=== PATIENT | male | born 1955 | race African-American/Black ===

== ENCOUNTER → 2019-08-28 | Outpatient (CLI) | payer OTHER | LOC: ECHO 08:46 | PROVIDERS: ATTEND Family Medicine | DX: I63.9 Cerebral infarction, unspecified (principal) ==

== ENCOUNTER → 2019-11-06 | Outpatient (CLI) | payer OTHER ==
--- NOTE | 2019-11-06 16:42 | CT ---
EXAM DESCRIPTION: Chest w/wo Contrast : Computed Tomography. CLINICAL HISTORY: 64 years Male MALIGNANT NEOPLASM OF PROSTATE COMPARISON: Chest x-ray September 09. TECHNIQUE: Spiral-axial scans at 5 x 5 mm intervals through the lungs and thorax without and with IV contrast. Coronal and sagittal 2.0 mm Mm reconstructions, without and with IV contrast. No adverse reactions. Total Exam DLP: 1369 mGy-cm. This exam was performed according to our departmental dose-optimization program which includes automated exposure control, adjustment of the mA and/or kV according to patient size and/or use of iterative reconstruction technique; to reduce radiation dose to as low as reasonably achievable (ALARA). Nodule measurements under 10 mm are given as mean value of 3 axes diameters. FINDINGS: Lungs and large airways: 1.3 x 1.0 mm subpleural nodule in the right lower lobe versus focal pleural thickening. Bilateral pleural-parenchymal scarring. No other nodules or masses. No new infiltrate. T Pleural spaces: Right lower lobe subpleural versus pleural thickening as previously described otherwise negative. Mediastinum and Rita: Small nodes including a node in the azygos region within normal range. No dominant solid masses. Great vessels and Heart: Trace calcifications in the coronary arteries. Atherosclerotic calcifications in the aortic arch. Soft tissues of neck base, axillae, and chest wall: Bilateral multiple axillary lymph nodes not abnormal enlarged. No dominant solid masses. Upper abdomen: No free air or free fluid. Limited visualization of gallbladder liver spleen and adrenal glands and stomach. Atherosclerotic calcification upper abdominal aorta. Osseous structures: Sternoclavicular arthrosis bilaterally. No lytic or blastic lesions. IMPRESSION: 1. 13 mm subpleural nodule right lower lobe versus focal pleural thickening. Utilizing 2017 Fleischner Society guidelines for pulmonary nodules and [facility] Best Practice guidelines, a follow-up chest CT scan is recommended in 3-6 month interval. If stable, additional follow-up chest CT scan can be obtained in 6-12 month interval. 2. Early atherosclerotic calcifications in the coronary arteries. Electronically signed by: Jamari Rangel MD 11/06/2019 4:40 PM CDT
== END ==
LOC: LAB.O 10:08
PROVIDERS: ATTEND Family Medicine
DX: C61 Malignant neoplasm of prostate (principal); R91.8 Other nonspecific abnormal finding of lung field; I25.10 Atherosclerotic heart disease of native coronary artery without angina pectoris